=== PATIENT | male | born 1965 | race Caucasian/White ===

== ENCOUNTER 2017-04-18 19:24 | Day surgery (SDC) | payer OTHER ==
[~2017-04-18] VITALS: Ht 175.3 cm; Wt 94.8 kg
[~2017-04-18 19:24] MED LIST: FIORICET,ESG1 TABLET PO; LOW DOSE ASPIRI81 M1 PO; OSCIMIN SR0.375 MG PO; PROMETHAZINE HC25 M1 PO; PROTRIPTYLINE HC5 MG; SUMATRIPTAN SUC50 MG; TOPAMAX50 MG PO; VERAPAMIL HCL360 MG PO; VITAMIN B12-FO1 EACH; VITAMIN D1000 INTUN; ZOFRAN ODT4 MG PO
[2017-04-18 20:13] LABS: HEMATOCRIT 44.7 % (38.0-50.0); MCH 31.5 PG (29.0-34.0); MCHC 35.1 G/DL (30.0-36.0); MCV 89.6 FL (86-99); PLATELET COUNT 283 K/uL (156-360); RBC DIS.WIDTH-CV 13.1 % (11.8-14.6); RBC DIS.WIDTH-SD 42.7 % (39-53); RED BLOOD COUNT 4.99 M/uL (4.00-5.50); WHITE BLOOD COUNT 11.6 K/uL (4.1-10.2)
[2017-04-18 20:33] LABS: CHLORIDE 107 mEq/L (99-109); POTASSIUM 3.2 mEq/L (3.7-5.4); SODIUM 142 mEq/L (136-147)
[2017-04-18 20:35] LABS: GLUCOSE 102 mg/dL (70-99)
[2017-04-18 20:36] LABS: ANION GAP 11 MEQ/L (2-14)
[2017-04-18 20:36] LABS: POINT-OF-CARE METER ID UU13113747
[2017-04-18 20:37] LABS: TOTAL BILIRUBIN 0.7 mg/dL (0.0-1.0)
[2017-04-18 20:38] LABS: ALKALINE PHOSPHATASE 73 IU/L (3-129)
[2017-04-18 20:39] LABS: GFR ESTIMATE (CALCULATED) > 59 mL/min/
[2017-04-18 20:40] LABS: UREA NITROGEN (BUN) 14 mg/dL (9-23)
[2017-04-18] MEDS ORDERED: PROBIOTIC1 EAC1 PO (22:27)
[2017-04-18] MEDS ORDERED: PERCOCET 5/31 TABLET PO (22:27)
[2017-04-18] MEDS ORDERED: CENTRUM SILVER1 EAC5 PO (22:27)
[2017-04-18] MEDS ORDERED: HYDROCHLOROTHIA25 MG PO (22:28)
[2017-04-18 22:45] VITALS: BP 155/102
== END 2017-04-19 00:50 | disposition home or self-care (01) ==
LOC: EME 19:24 → SDC 22:45 → EME 22:45 → SDC 04-19 00:50
PROVIDERS: Physician Assistant
PROC: 0DB68ZX Excision of Stomach, Via Natural or Artificial Opening Endoscopic, Diagnostic (ICD-10-PCS; principal; 2017-04-18)
DX: T18.128A Food in esophagus causing other injury, initial encounter (principal); K22.11 Ulcer of esophagus with bleeding; K29.70 Gastritis, unspecified, without bleeding; R07.89 Other chest pain; G47.30 Sleep apnea, unspecified; R11.2 Nausea with vomiting, unspecified; Z86.73 Personal history of transient ischemic attack (TIA), and cerebral infarction without residual deficits; Z79.82 Long term (current) use of aspirin
CPT/HCPCS: 70360; 71010; 80053; 82948; 85027; 88305; 88342 TC; 93005; 99281; 99284; J2060; J2405; J3010; J7030

== ENCOUNTER → 2018-01-17 | Outpatient (CLI) | payer OTHER ==
[~2018-01-17] MED LIST changes: +CENTRUM SILVER1 EAC5 PO; +HYDROCHLOROTHIA25 MG PO; +PERCOCET 5/31 TABLET PO; +PROBIOTIC1 EAC1 PO
== END | disposition home or self-care (01) ==
LOC: CDC 14:19
DX: Z01.810 Encounter for preprocedural cardiovascular examination (principal); M79.641 Pain in right hand; G56.03 Carpal tunnel syndrome, bilateral upper limbs; G56.23 Lesion of ulnar nerve, bilateral upper limbs; M79.644 Pain in right finger(s); I45.4 Nonspecific intraventricular block; R94.31 Abnormal electrocardiogram [ECG] [EKG]
CPT/HCPCS: 93000